=== PATIENT | male | born 1985 | race Caucasian/White ===

== ENCOUNTER 2019-08-16 18:59 | Observation (INO) ==
[2019-08-16 19:41] LABS: Basophils % 0.4 % (0.0-0.8); Eosinophils # 0.1 10*3/uL (0.0-0.87); Eosinophils % 2.2 % (0.00-10.9); Hematocrit 34.1 VOL% (42.0-52.0); Hemoglobin 11.9 GM/DL (14.0-18.0); Immature Granulocytes % 0.4 %; Immature Granulocytes Absolute 0.02 #; Lymphocytes # 1.4 10*3/uL (1.4-4.0); Lymphocytes % 28.1 % (21.2-54.2); Mean Corpuscular HGB Conc 34.9 GM/DL (32-36); Mean Corpuscular Volume 87.2 FL (87-102); Mean Platelet Volume 9.7 FL (9.6-12.0); Monocytes % 10.4 % (1.7-12.7); Neutrophils % 58.5 % (38.7-73.9); Platelet Count 194 T/CUMM (130-400); Red Blood Count 3.91 MC/CUMM (3.8-5.5); Red Cell Distribution Width 13.8 % (9.3-17.3)
[2019-08-16 19:53] LABS: Albumin 3.2 G/DL (3.4-5.0); Bilirubin,Total 0.5 MG/DL (0.2-1.0); Total Protein 6.5 G/DL (6.4-8.3)
[2019-08-16 19:54] LABS: Osmolality,Calculated 237.3 MOS/KG (273-304)
[2019-08-16] MEDS ORDERED: ACETAMINOPHEN 325 MG TABLET PO PRN (22:57)
[2019-08-16] MEDS ORDERED: ENOXAPARIN 40 MG/0.4 ML SYRINGE SUBCUT SCH (23:30)
[2019-08-16] MEDS ORDERED: LORazepam 2 MG/1 ML VIAL IV PRN (23:31)
[2019-08-17 05:00] LABS: Basophils % 0.3 % (0.0-0.8); Eosinophils # 0.1 10*3/uL (0.0-0.87); Eosinophils % 1.3 % (0.00-10.9); Hematocrit 36.2 VOL% (42.0-52.0); Hemoglobin 12.8 GM/DL (14.0-18.0); Immature Granulocytes % 0.2 %; Immature Granulocytes Absolute 0.01 #; Lymphocytes # 0.5 10*3/uL (1.4-4.0); Lymphocytes % 8.5 % (21.2-54.2); Mean Corpuscular HGB Conc 35.4 GM/DL (32-36); Mean Platelet Volume 9.8 FL (9.6-12.0); Monocytes % 8.6 % (1.7-12.7); Neutrophils % 81.1 % (38.7-73.9); Platelet Count 211 T/CUMM (130-400); Red Blood Count 4.16 MC/CUMM (3.8-5.5); Red Cell Distribution Width 13.9 % (9.3-17.3); White Blood Count 6.3 T/CUMM (4-12)
[2019-08-17] MEDS ORDERED: LOPERAMIDE 2 MG CAPSULE PO PRN (05:00)
[2019-08-17] MEDS ORDERED: MAGNESIUM HYDROXIDE SUSP 30 ML UDCUP PO PRN (05:00)
[2019-08-17 05:41] LABS: Calcium 7.2 MG/DL (8.5-10.1)
[2019-08-17 05:42] LABS: Osmolality,Calculated 256.8 MOS/KG (273-304)
[2019-08-17] MEDS ORDERED: ZIPRASIDONE 20 MG CAPSULE PO SCH (08:00)
[2019-08-17 08:08] VITALS: BP 123/56
[2019-08-17] MEDS ORDERED: MAGNESIUM HYDROXIDE SUSP 30 ML UDCUP PO ONE (08:50)
[2019-08-17] MEDS ORDERED: MUPIROCIN 2% OINT 22 GM TUBE TOP SCH (09:00)
[2019-08-17] MEDS ORDERED: OXcarbazepine 300 MG TABLET PO SCH (09:00)
[2019-08-17] MEDS ORDERED: PANTOPRAZOLE 40 MG TABLET PO SCH (09:00)
[2019-08-17] MEDS ORDERED: levETIRAcetam 500 MG TABLET PO SCH (09:00)
[2019-08-17] MEDS ORDERED: LORATADINE 10 MG TABLET PO SCH (09:00)
== END 2019-08-17 12:40 ==
LOC: N.ED 18:59 → N.EDINP 18:59 → N.2W 23:30
PROVIDERS: ADMIT Internal Medicine; ATTEND Internal Medicine